=== PATIENT | female | born 1955 | race American Indian/Alaskan Native ===

== ENCOUNTER 2017-08-10 05:57 | Day surgery (SDC) | payer BC, OTHER ==
[2017-08-10] MEDS ORDERED: fentaNYL 100 MCG/2 ML SDV IV ONE ×2 (05:58→06:58)
[2017-08-10] MEDS ORDERED: Midazolam 1 MG/ML 2 ML SDV IV ONE ×5 (05:58→07:03)
[2017-08-10] MEDS ORDERED: Dextrose 5%-0.45% NaCl 1,000 ML IV SCH (06:00)
[2017-08-10] MEDS ORDERED: fentaNYL 100 MCG/2 ML SDV ONE (06:20)
[2017-08-10] MEDS ORDERED: Midazolam 1 MG/ML 2 ML SDV ONE (06:20)
--- NOTE | 2017-08-10 07:40 | OR ---
DATE: 08/10/2017 PROCEDURE: Total colonoscopy. INSTRUMENT USED: CF-H180AL Olympus video colonoscope. PREMEDICATIONS: Fentanyl 100 mcg intravenous, Versed 3 mg intravenous. Nasal 2 L O2 cannula. The procedure was done under pulse oximetry, BP recording, and grey iron molder. INDICATION: Screening colonoscopic examination is done for detection of any polypoid lesions and removal, endoscopic hemostasis therapy if needed. DESCRIPTION OF PROCEDURE: Initial rectal exam was unremarkable. Rigid anoscopy was normal. The colonoscope was passed with ease. Numerous scattered diverticula were noted in the distal left colon along with some deformity. The scope was passed with ease up to the ileocecal area, photographs were taken of the normal-appearing cecum identified by landmarks of appendiceal orifice and double-bulged ileocecal folds. No bleeding was noted from any of the visualized areas at the commencement of the exam. No stricture. No vascular ectasia. No large isolated ulcerations seen. No evidence of diffuse inflammatory bowel disease in the form of friability, contact bleeding, or ulcerations. No polyp or tumor mass identified. Probing the proximal sides of folds and flexures, using adequate distention and clearing of the stool material, withdrawal of the scope was made, cecum to rectum time over 6 minutes. No bleeding was noted from any of the visualized areas at the completion of examination. IMPRESSION: Diverticulosis. The patient tolerated the procedure well. [facility] /[id number]
[2017-08-10] MEDS ORDERED: Sodium Chloride 0.9% 10 ML Syringe FLUSH PRN (09:00)
[2017-08-10 10:28] VITALS: BP 114/72
== END 2017-08-10 09:20 | disposition home or self-care (01) ==
LOC: DL.ENDO 05:57
PROVIDERS: ATTEND Internal Medicine Gastroenterology
DX: Z12.11 Encounter for screening for malignant neoplasm of colon (principal); K57.30 Diverticulosis of large intestine without perforation or abscess without bleeding; Z88.8 Allergy status to other drugs, medicaments and biological substances
CPT/HCPCS: 45378; J7042; J2250; J3010

== ENCOUNTER 2021-07-29 05:22 | Day surgery (SDC) | payer BC ==
[2021-07-29] MEDS ORDERED: Midazolam 1 MG/ML 2 ML SDV IV ONE ×7 (05:23→06:53)
[2021-07-29] MEDS ORDERED: fentaNYL 100 MCG/2 ML SDV IV ONE ×3 (05:23→06:38)
[2021-07-29] MEDS ORDERED: Sodium Chloride 0.9% 10 ML Syringe FLUSH PRN (06:00)
[2021-07-29] MEDS ORDERED: Dextrose 5%-0.45% NaCl 1,000 ML IV SCH (06:00)
[2021-07-29] MEDS ORDERED: Midazolam 1 MG/ML 2 ML SDV ONE (06:17)
[2021-07-29] MEDS ORDERED: fentaNYL 100 MCG/2 ML SDV ONE (06:17)
[2021-07-29 09:22] VITALS: BP 124/85; PULSE 67
--- NOTE | 2021-07-29 09:37 | OR ---
DATE: 07/29/2021 PROCEDURE: Total colonoscopy. INSTRUMENT USED: PCF-H190DL Olympus video colonoscope. PREMEDICATIONS: Fentanyl 100 mcg intravenous, Versed 4 mg intravenous. Nasal O2 cannula. The procedure was done under pulse oximetry, BP recording, and quality assurance monitor body. INDICATION: The patient with recent alteration in bowel habits, persistent in nature, not responsive to medical measures. Colonoscopic examination is done for detection of any polypoid lesions and removal, endoscopic hemostasis therapy if needed. DESCRIPTION OF PROCEDURE: Initial rectal exam was unremarkable. Rigid anoscopy was normal. The colonoscope was passed with ease. Numerous scattered diverticula were noted in the distal left colon with deformity. The scope was passed with ease to the ileocecal area. Photographs were taken of normal- appearing cecum, identified by landmarks of appendiceal orifice and double- bulged ileocecal folds. No bleeding was noted from any of the visualized areas at the commencement of the examination. The bowel preparation was found to be adequate, [place] scale 2 in right and transverse colon, 3 in left colon, total score 7. No stricture. No vascular ectasia. No large isolated ulcerations seen. No evidence of diffuse inflammatory bowel disease in the form of friability, contact bleeding, or ulcerations. No polyp or tumor mass identified. Probing the proximal sides of folds and flexures using adequate distention and clearing up the stool material, withdrawal of the scope was made, cecum to rectum time over 6 minutes. No bleeding was noted from any of the visualized areas at the completion of examination. IMPRESSION: Diverticulosis. The patient tolerated the procedure well. [facility] /[id number]
== END 2021-07-29 09:02 | disposition home or self-care (01) ==
LOC: DL.ENDO 05:22
PROVIDERS: ATTEND Internal Medicine Gastroenterology
DX: K57.30 Diverticulosis of large intestine without perforation or abscess without bleeding (principal); E66.01 Morbid (severe) obesity due to excess calories; K21.9 Gastro-esophageal reflux disease without esophagitis; E78.5 Hyperlipidemia, unspecified; G47.33 Obstructive sleep apnea (adult) (pediatric); E11.22 Type 2 diabetes mellitus with diabetic chronic kidney disease; Z98.890 Other specified postprocedural states; Z79.4 Long term (current) use of insulin; Z68.41 Body mass index [BMI] 40.0-44.9, adult
CPT/HCPCS: J2250; J3010; J7042